=== PATIENT | female | born 1985 | race Caucasian/White ===

== ENCOUNTER 2019-01-26 02:48 | Emergency (ER) | payer OTHER ==
[2019-01-26 03:00] VITALS: TEMP 97.5; BMI 38.6
--- NOTE | 2019-01-26 03:00 | PDOC ---
*Physical Exam - Vital Signs Last Vital Signs Temp Pulse Resp BP Pulse Ox 97.5 F L 102 H 22 H 126/73 98 01/26/19 02:48 01/26/19 02:48 01/26/19 02:48 01/26/19 02:48 01/26/19 02:48 Medical Decision Making - Medical Decision Making 01/26/19 03:00 Patient seen by the advanced practice provider under my direct supervision. Ancillary testing reviewed as necessary. I agree with plan as outlined by the advanced practice provider. *DC/Admit/Observation/Transfer Diagnosis at time of Disposition: Asthma exacerbation - Discharge Dispostion Condition at time of disposition: Fair - Referrals - Patient Instructions - Post Discharge Activity
--- NOTE | 2019-01-26 03:01 | PDOC ---
History of Present Illness - General Chief Complaint: Asthma Stated Complaint: ASTHMA,31 WKS Time Seen by Provider: 01/26/19 02:57 - History of Present Illness Initial Comments: 01/27/19 05:35 33 year old female 31 week c/o wheezing and cough x 3 weeks with little improvement with nebulizer at home. patient received duoneb and decadron by EMS. reports feeling a lot better. Past History - Past Medical History Allergies/Adverse Reactions: Allergies Allergy/AdvReac Type Severity Reaction Status Date / Time No Known Allergies Allergy Verified 01/26/19 02:59 Home Medications: Ambulatory Orders Albuterol 0.083% Nebulizer Andreina [Ventolin 0.083%] 1 neb NEB Q4H PRN 01/26/19 Albuterol Sulfate Inhaler - [Ventolin Hfa Inhaler -] 2 inh PO Q4H PRN 01/26/19 Vitamins (Sjr) - 1 tab PO DAILY 01/26/19 Asthma: Yes - Suicide/Smoking/Psychosocial Hx Smoking History: Never smoked Have you smoked in the past 12 months: No Information on smoking cessation initiated: No Hx Alcohol Use: No Drug/Substance Use Hx: No Review of Systems - Review of Systems Able to Perform ROS?: Yes Is the patient limited Persian proficient: No Constitutional: No: Symptoms Reported, See HPI, Chills, Diaphoresis, Fever, Loss of Appetite, Malaise, Night Sweats, Weakness, Weight Stable, Unintentional Wgt. Loss, Unexplained wgt Loss, Other HEENTM: No: Symptoms Reported, See HPI, Eye Pain, Blurred Vision, Tearing, Recent change in vision, Double Vision, Cataracts, Ear Pain, Ocular Prothesis, Ear Discharge, Nose Pain, Nose Congestion, Tinnitus, Nose Bleeding, Hearing Loss , Throat Pain, Throat Swelling, Mouth Pain, Dental Problems, Difficulty Swallowing, Mouth Swelling, Other Respiratory: Yes: Cough, Wheezing. No: Symptoms reported, See HPI, Orthopnea, Shortness of Breath, SOB with Exertion, SOB at Rest, Stridor, Productive cough, Hemoptysis, Other Cardiac (ROS): No: Symptoms Reported, See HPI, Chest Pain, Edema, Irregular Heart Rate, Lightheadedness, Palpitations, Syncope, Chest Tightness, Other ABD/GI: No: Symptoms Reported, See HPI, Abdominal Distended, Abd. Pain w/ defecation, Blood Streaked Bowels, Constipated, Diarrhea, Difficulty Swallowing , Nausea, Poor Appetite, Poor Fluid Intake, Rectal Bleeding, Vomiting, Indigestion, Abdominal cramping, Tarry Stools, Other *Physical Exam - Vital Signs Last Vital Signs Temp Pulse Resp BP Pulse Ox 97.5 F L 102 H 22 H 126/73 98 01/26/19 02:48 01/26/19 02:48 01/26/19 02:48 01/26/19 02:48 01/26/19 02:48 - Physical Exam General Appearance: Yes: Appropriately Dressed HEENT: positive: Normal ENT Inspection Respiratory/Chest: positive: Accessory Muscle Use, Rhonchi Cardiovascular: positive: Regular Rate Gastrointestinal/Abdominal: positive: Normal Bowel Sounds, Soft Musculoskeletal: positive: Normal Inspection Extremity: positive: Normal Capillary Refill, Normal Inspection, Normal Range of Motion Integumentary: positive: Dry, Warm Neurologic: positive: Fully Oriented, Alert Progress Note - Progress Note Progress Note: Bronchitis vs. asthma exacerbation P: duoneb patient now feels better. patient send to L& D for clearance. *DC/Admit/Observation/Transfer Diagnosis at time of Disposition: Asthma exacerbation Qualifiers: Asthma severity: mild Asthma persistence: intermittent Qualified Code(s): J45.21 - Mild intermittent asthma with (acute) exacerbation - Discharge Dispostion Disposition: HOME Condition at time of disposition: Fair - Referrals Referrals: Tru Emerson MD [Staff Physician] - (patient will follow up & maintain all appts as scheduled for 01/28/19 11am patient will continue to drink 10--8oz glasses of water daily patient will return to l&d if water breaks, vaginal bleeding, regular contractions or decreased movement patient verbalizes clear understanding of all discharge instructions patient discharged to home stable intact & undelivered) - Patient Instructions Printed Discharge Instructions: Asthma -- Adult Additional Instructions: you may take albuterol every 4-6 hours as needed for wheezing. follow up with your doctor as soon as possible. - Post Discharge Activity
[2019-01-26] MEDS ORDERED: ALBUTEROL SO4 2.5/IPRATROPIUM 0.5 INH SOL 3 ML VIAL.NEB. NEB ONE ×2 (03:09→03:17)
[2019-01-26] MEDS ORDERED: ALBUTEROL SO4 0.083% IH SOL 2.5 MG/3 ML VIAL.NEB. NEB ONE (03:16)
[2019-01-26 05:21] VITALS: BP 139/74; PULSE 90
== END 2019-01-26 04:55 | disposition home or self-care (01) ==
LOC: JER 02:48
PROC: 3E0F7GC Introduction of Other Therapeutic Substance into Respiratory Tract, Via Natural or Artificial Opening (ICD-10-PCS; principal; 2019-01-26)
DX: O26.893 Other specified pregnancy related conditions, third trimester (principal); O99.513 Diseases of the respiratory system complicating pregnancy, third trimester; J45.20 Mild intermittent asthma, uncomplicated; Z3A.31 31 weeks gestation of pregnancy
CPT/HCPCS: 94640; 99281-25